=== PATIENT | female | born 1965 | race Caucasian/White ===

== ENCOUNTER 2017-04-15 09:16 | Inpatient (IN) | payer MEDICAID, SELFPAY ==
[~2017-04-15] VITALS: Ht 175.3 cm; Wt 59.4 kg
[2017-04-15 09:57] VITALS: BP 128/97
[2017-04-15] MEDS ORDERED: ZOLPIDEM TARTRATE 10 MG TABLET PO PRN (11:30)
[2017-04-15 12:30] VITALS: BP 142/113
[2017-04-15] MEDS: LORazepam 2 MG TABLET PO PRN (12:53)
[2017-04-15] MEDS: HALOPERIDOL 5 MG TABLET PO PRN (12:54)
[2017-04-15] MEDS ORDERED: ACETAMINOPHEN 325 MG TABLET PO PRN (13:00)
[2017-04-15] MEDS: IBUPROFEN 600 MG TABLET PO PRN (13:34)
[2017-04-15] MEDS ORDERED: INFLUENZA VIRUS VACCINE QVS 2017-18 (3YR+)/PF 60 MCG/0.5 ML SYRINGE IM ONE (14:15)
[2017-04-15] MEDS: OLANZapine 5 MG TABLET PO SCH (21:00)
[2017-04-15 23:09] VITALS: BP 108/70
[2017-04-16 08:30] VITALS: BP 107/77
[2017-04-16 09:00] LABS: BASOPHILS # (AUTO) 0.03 K/uL (0.00-0.20); BASOPHILS % (AUTO) 0.5 % (0.0-2.0); EOSINOPHILS # (AUTO) 0.21 K/uL (0.00-0.70); EOSINOPHILS % (AUTO) 3.62 % (1.0-6.0); HEMATOCRIT 46.4 % (36-46); HEMOGLOBIN 15.4 g/dL (12.0-16.0); LYMPHOCYTES # (AUTO) 1.7 K/uL (1.0-4.8); LYMPHOCYTES % (AUTO) 28.8 % (22.0-44.0); MEAN CORPUSCULAR HEMOGLOBIN 32.9 pg (26.0-34.0); MEAN CORPUSCULAR HGB CONC 33.2 G/dL (31.0-37.0); MEAN CORPUSCULAR VOLUME 99 fL (80-100); MONOCYTES # (AUTO) 0.4 K/uL (0.1-1.0); MONOCYTES % (AUTO) 6.8 % (2.0-9.0); NEUTROPHILS # (AUTO) 3.6 K/uL (1.8-7.7); NEUTROPHILS % (AUTO) 60.3 % (40.0-70.0); PLATELET COUNT (AUTO) 258 K/uL (150-450); RED BLOOD CELL COUNT(AUTO) 4.68 MIL/uL (4.00-5.20); RED CELL DISTRIBUTION WIDTH 13.3 % (11.5-14.5); WHITE BLOOD COUNT (AUTO) 5.9 K/uL (4.5-11.0)
[2017-04-16] MEDS: PANTOPRAZOLE SODIUM 40 MG DR TABLET PO SCH (09:16)
[2017-04-16] MEDS: NICOTINE 7 MG/24 HOUR PATCH TD SCH (09:16)
[2017-04-16] MEDS: FLUoxetine HCL 20 MG CAPSULE PO SCH (09:16)
[2017-04-16 09:58] LABS: HEMOGLOBIN A1C 6.2 % (4.5-6.2)
[2017-04-16 10:11] LABS: ALANINE AMINOTRANSFERASE 27 U/L (12-78); ALBUMIN 3.6 g/dL (3.4-5.0); ANION GAP 7 mmol/L (8-16); ASPARTATE AMINOTRANSFERASE 17 U/L (15-37); BILIRUBIN,TOTAL 0.2 mg/dL (0.1-1.0); CALCIUM, TOTAL 8.8 mg/dL (8.8-10.5); CARBON DIOXIDE 30 mmol/L (22-29); CHLORIDE 103 mmol/L (98-107); CHOL/HDL RATIO 2.1 (3.9-5.7); CREATININE 0.89 mg/dL (0.60-1.30); GLOMERULAR FILTR. RATE CALC > 60 mL/min (>60); POTASSIUM 4.8 mmol/L (3.5-5.1); SODIUM SERUM 140 mmol/L (136-145); THYROID STIMULATING HORMONE 1.97 uIU/mL (0.36-3.74); TOTAL PROTEIN, SERUM 6.2 g/dL (6.4-8.2); UREA NITROGEN, BLOOD 18 mg/dL (7-18)
[2017-04-16] MEDS ORDERED: LORazepam 2 MG/ML VIAL IM ONE (11:45)
[2017-04-16] MEDS ORDERED: DiphenhydrAMINE HCL 50 MG/ML VIAL IM ONE (11:45)
[2017-04-16] MEDS ORDERED: HALOPERIDOL LACTATE 5 MG/ML VIAL IM ONE (11:45)
[2017-04-16 11:57] LABS: APPEARANCE,URINE CLEAR (CLEAR); GLUCOSE, URINE (UA) NEGATIVE (NEGATIVE); KETONES,URINE NEGATIVE (NEGATIVE); LEUKOCYTE ESTERASE ,URINE SMALL (NEGATIVE); OCCULT BLOOD,URINE TRACE (NEGATIVE); PROTEIN,URINE NEGATIVE (NEGATIVE)
[2017-04-16 12:39] LABS: ADD UA MICROSCOPIC YES
[2017-04-16 12:42] LABS: RBC,URINE 0-2 /HPF (0-2); SQUAMOUS EPITHELIAL CELL,UR Few /LPF (None Seen)
[2017-04-16] MEDS ORDERED: OLAN5TAB2 PO (13:39)
[2017-04-16] MEDS ORDERED: FLUO20CA30 PO (13:39)
[2017-04-16] MEDS ORDERED: PANT40TA25 PO (13:40)
[2017-04-16 16:45] VITALS: BP 105/64
[2017-04-16] MEDS: OLANZapine 5 MG TABLET PO SCH (20:23)
[2017-04-17 06:55] VITALS: BP 101/75
[2017-04-17] MEDS: NICOTINE 7 MG/24 HOUR PATCH TD SCH (09:11)
[2017-04-17] MEDS: FLUoxetine HCL 20 MG CAPSULE PO SCH (09:12)
[2017-04-17] MEDS: PANTOPRAZOLE SODIUM 40 MG DR TABLET PO SCH (09:12)
[2017-04-17] MEDS: LORazepam 2 MG TABLET PO PRN (16:41)
[2017-04-17 16:46] VITALS: BP 113/68
[2017-04-17] MEDS: OLANZapine 5 MG TABLET PO SCH (20:25)
[2017-04-18 06:30] VITALS: BP 115/81
[2017-04-18] MEDS: LORazepam 2 MG TABLET PO PRN ×2 (07:09→17:12)
[2017-04-18] MEDS: PANTOPRAZOLE SODIUM 40 MG DR TABLET PO SCH (08:12)
[2017-04-18] MEDS: FLUoxetine HCL 20 MG CAPSULE PO SCH (08:12)
[2017-04-18] MEDS: NICOTINE 7 MG/24 HOUR PATCH TD SCH (08:13)
[2017-04-18] MEDS: HALOPERIDOL 5 MG TABLET PO PRN (08:17)
[2017-04-18 08:36] VITALS: BP 115/81
[2017-04-18 17:12] VITALS: BP 110/68
[2017-04-18] MEDS: IBUPROFEN 600 MG TABLET PO PRN (17:12)
[2017-04-18] MEDS: OLANZapine 5 MG TABLET PO SCH (21:00)
[2017-04-19] MEDS: LORazepam 2 MG TABLET PO PRN ×2 (06:30→11:34)
[2017-04-19 06:34] VITALS: BP 130/77
[2017-04-19 08:24] VITALS: BP 133/94
[2017-04-19] MEDS: NICOTINE 7 MG/24 HOUR PATCH TD SCH (08:30)
[2017-04-19] MEDS: PANTOPRAZOLE SODIUM 40 MG DR TABLET PO SCH (08:30)
[2017-04-19] MEDS: FLUoxetine HCL 20 MG CAPSULE PO SCH (08:30)
== END 2017-04-19 13:30 | disposition home or self-care (01) | DRG 750 ==
LOC: B3A 12:31
PROVIDERS: ADMIT Psychiatry & Neurology Psychiatry; ATTEND Psychiatry & Neurology Psychiatry
DX: F25.1 Schizoaffective disorder, depressive type (principal); R45.851 Suicidal ideations; F29 Unspecified psychosis not due to a substance or known physiological condition; R73.03 Prediabetes; F41.9 Anxiety disorder, unspecified; F15.10 Other stimulant abuse, uncomplicated; F12.90 Cannabis use, unspecified, uncomplicated; K21.9 Gastro-esophageal reflux disease without esophagitis; Z28.21 Immunization not carried out because of patient refusal; Z91.5 Personal history of self-harm; Z59.0 Homelessness
CPT/HCPCS: 80307; 83036; 84439; 84443; 90471; J1200; J1630; J2060

== ENCOUNTER 2017-04-15 15:35 | Emergency (ER) | payer MEDICAID, SELFPAY ==
[~2017-04-15] VITALS: Ht 160 cm; Wt 63.6 kg
[2017-04-15 18:34] LABS: BASOPHILS # (AUTO) 0.07 K/uL (0.00-0.20); BASOPHILS % (AUTO) 0.8 % (0.0-2.0); EOSINOPHILS # (AUTO) 0.29 K/uL (0.00-0.70); EOSINOPHILS % (AUTO) 3.45 % (1.0-6.0); HEMATOCRIT 43.4 % (36-46); HEMOGLOBIN 14.6 g/dL (12.0-16.0); LYMPHOCYTES # (AUTO) 2.8 K/uL (1.0-4.8); LYMPHOCYTES % (AUTO) 33.1 % (22.0-44.0); MEAN CORPUSCULAR HEMOGLOBIN 33.1 pg (26.0-34.0); MEAN CORPUSCULAR HGB CONC 33.7 G/dL (31.0-37.0); MEAN CORPUSCULAR VOLUME 98 fL (80-100); MONOCYTES # (AUTO) 0.5 K/uL (0.1-1.0); NEUTROPHILS # (AUTO) 4.8 K/uL (1.8-7.7); NEUTROPHILS % (AUTO) 56.6 % (40.0-70.0); PLATELET COUNT (AUTO) 251 K/uL (150-450); RED BLOOD CELL COUNT(AUTO) 4.41 MIL/uL (4.00-5.20); RED CELL DISTRIBUTION WIDTH 13.1 % (11.5-14.5)
[2017-04-15 18:58] LABS: ANION GAP 6 mmol/L (8-16); CARBON DIOXIDE 28 mmol/L (22-29); CHLORIDE 106 mmol/L (98-107); CREATININE 0.79 mg/dL (0.60-1.30); GLOMERULAR FILTR. RATE CALC > 60 mL/min (>60); GLUCOSE,RANDOM 98 mg/dL (70-110); POTASSIUM 4.2 mmol/L (3.5-5.1); SODIUM SERUM 140 mmol/L (136-145); UREA NITROGEN, BLOOD 17 mg/dL (7-18)
[2017-04-15 19:04] LABS: ALANINE AMINOTRANSFERASE 20 U/L (12-78); ALBUMIN 3.4 g/dL (3.4-5.0); ALKALINE PHOSPHATASE 75 U/L (46-116); ASPARTATE AMINOTRANSFERASE 17 U/L (15-37); BILIRUBIN,TOTAL 0.1 mg/dL (0.1-1.0); LIPASE 291 U/L (73-393); TOTAL PROTEIN, SERUM 6.8 g/dL (6.4-8.2)
[2017-04-15 20:03] LABS: ACETAMINOPHEN < 2 mcg/mL (10-30)
[2017-04-15] MEDS ORDERED: IBUPROFEN 600 MG TABLET PO ONE (20:45)
[2017-04-15 20:56] LABS: APPEARANCE,URINE CLOUDY (CLEAR); BILIRUBIN,URINE NEGATIVE (NEGATIVE); GLUCOSE, URINE (UA) NEGATIVE (NEGATIVE); KETONES,URINE NEGATIVE (NEGATIVE); LEUKOCYTE ESTERASE ,URINE LARGE (NEGATIVE); NITRATE,URINE NEGATIVE (NEGATIVE); OCCULT BLOOD,URINE MODERATE (NEGATIVE); PROTEIN,URINE NEGATIVE (NEGATIVE); UROBILINOGEN,URINE 0.2 mg/dL (<=1.0)
[2017-04-15 21:00] LABS: AMPHET/METH SCREEN,URINE POSITIVE (NEGATIVE); BARBITURATE SCREEN, URINE NEGATIVE (NEGATIVE); BENZODIAZEPINES SCREEN,URINE NEGATIVE (NEGATIVE); CANNABINOID SCREEN,URINE POSITIVE (NEGATIVE); COCAINE SCREEN,URINE NEGATIVE (NEGATIVE); METHADONE SCREEN, URINE NEGATIVE (NEGATIVE); OPIATE SCREEN,URINE NEGATIVE (NEGATIVE)
[2017-04-15 21:01] LABS: PHENCYCLIDINE SCREEN,URINE NEGATIVE (NEGATIVE)
[2017-04-15 21:42] LABS: SQUAMOUS EPITHELIAL CELL,UR Moderate /LPF (None Seen)
[2017-04-15 21:43] LABS: BACTERIA,URINE Moderate /HPF (None Seen); WBC,URINE 51-100 /HPF (0-5)
[2017-04-15 21:57] VITALS: BP 119/71
[2017-04-16] MEDS ORDERED: FLUO20CA30 PO (13:39)
[2017-04-16] MEDS ORDERED: OLAN5TAB2 PO (13:39)
[2017-04-16] MEDS ORDERED: PANT40TA25 PO (13:40)
== END 2017-04-15 22:36 | disposition home or self-care (01) ==
LOC: EMS 15:36
DX: R10.9 Unspecified abdominal pain (principal); R45.851 Suicidal ideations; K59.00 Constipation, unspecified; F31.9 Bipolar disorder, unspecified; F22 Delusional disorders
CPT/HCPCS: 36415; 76705; 80053; 80307; 81001; 83690; 85025; 87086; 99285; G0480; G0481

== ENCOUNTER 2017-05-08 13:02 | Inpatient (IN) | payer MEDICAID, SELFPAY ==
[~2017-05-08] VITALS: Ht 172.7 cm; Wt 61.0 kg
[~2017-05-08 13:02] MED LIST: FLUO20CA30 PO; OLAN5TAB2 PO; PANT40TA25 PO
[2017-05-08] MEDS ORDERED: ZOLPIDEM TARTRATE 10 MG TABLET PO PRN (20:30)
[2017-05-08 20:53] VITALS: BP 117/76
[2017-05-09] MEDS ORDERED: ACETAMINOPHEN 325 MG TABLET PO PRN (00:15)
[2017-05-09] MEDS ORDERED: IBUPROFEN 600 MG TABLET PO PRN (00:15)
[2017-05-09 04:25] VITALS: BP 115/62
[2017-05-09] MEDS: LORazepam 2 MG TABLET PO PRN ×2 (06:19→15:10)
[2017-05-09] MEDS ORDERED: PNEUMOCOCCAL VACCINE POLYVALENT 0.5 ML VIAL [PPSV23] IM ONE (06:45)
[2017-05-09] MEDS ORDERED: INFLUENZA VIRUS VACCINE QVS 2017-18 (3YR+)/PF 60 MCG/0.5 ML SYRINGE IM ONE (06:45)
[2017-05-09 07:31] LABS: BASOPHILS % (AUTO) 0.5 % (0.0-2.0); EOSINOPHILS % (AUTO) 4.4 % (1.0-6.0); HEMATOCRIT 45.9 % (36-46); HEMOGLOBIN 15.6 g/dL (12.0-16.0); LYMPHOCYTES % (AUTO) 30.8 % (22.0-44.0); MEAN CORPUSCULAR HEMOGLOBIN 33.2 pg (26.0-34.0); MEAN CORPUSCULAR HGB CONC 33.9 G/dL (31.0-37.0); MEAN CORPUSCULAR VOLUME 98 fL (80-100); MONOCYTES # (AUTO) 0.6 K/uL (0.1-1.0); MONOCYTES % (AUTO) 9.1 % (2.0-9.0); NEUTROPHILS # (AUTO) 3.6 K/uL (1.8-7.7); NEUTROPHILS % (AUTO) 55.2 % (40.0-70.0); PLATELET COUNT (AUTO) 318 K/uL (150-450); RED BLOOD CELL COUNT(AUTO) 4.69 MIL/uL (4.00-5.20); RED CELL DISTRIBUTION WIDTH 13.3 % (11.5-14.5); WHITE BLOOD COUNT (AUTO) 6.5 K/uL (4.5-11.0)
[2017-05-09 07:51] LABS: HEMOGLOBIN A1C 6.3 % (4.5-6.2)
[2017-05-09 08:02] LABS: ALANINE AMINOTRANSFERASE 28 U/L (12-78); ALBUMIN 3.8 g/dL (3.4-5.0); ANION GAP 5 mmol/L (8-16); ASPARTATE AMINOTRANSFERASE 16 U/L (15-37); BILIRUBIN,TOTAL 0.3 mg/dL (0.1-1.0); CALCIUM, TOTAL 8.9 mg/dL (8.8-10.5); CARBON DIOXIDE 31 mmol/L (22-29); CHLORIDE 104 mmol/L (98-107); CHOL/HDL RATIO 2.1 (3.9-5.7); CREATININE 0.86 mg/dL (0.60-1.30); GLOMERULAR FILTR. RATE CALC > 60 mL/min (>60); POTASSIUM 5.1 mmol/L (3.5-5.1); SODIUM SERUM 140 mmol/L (136-145); THYROID STIMULATING HORMONE 1.49 uIU/mL (0.36-3.74); TOTAL PROTEIN, SERUM 6.6 g/dL (6.4-8.2); UREA NITROGEN, BLOOD 16 mg/dL (7-18)
[2017-05-09 08:40] VITALS: BP 106/60
[2017-05-09 09:28] LABS: APPEARANCE,URINE TURBID (CLEAR); GLUCOSE, URINE (UA) NEGATIVE (NEGATIVE); KETONES,URINE NEGATIVE (NEGATIVE); LEUKOCYTE ESTERASE ,URINE NEGATIVE (NEGATIVE); OCCULT BLOOD,URINE NEGATIVE (NEGATIVE); PH,URINE 5.5 (5.0-8.0); PROTEIN,URINE POS 1+ (NEGATIVE)
[2017-05-09 09:30] LABS: ADD UA MICROSCOPIC YES
[2017-05-09 09:46] LABS: CALCIUM OXALATE CRYSTALS,UR Few /LPF (None Seen); RBC,URINE None Seen /HPF (0-2); SQUAMOUS EPITHELIAL CELL,UR Rare /LPF (None Seen); WBC,URINE None Seen /HPF (0-5)
[2017-05-09] MEDS: FLUoxetine HCL 20 MG CAPSULE PO SCH (12:48)
[2017-05-09] MEDS: HALOPERIDOL 5 MG TABLET PO PRN (16:21)
[2017-05-09] MEDS ORDERED: FLUCONAZOLE 150 MG TABLET PO ONE (16:30)
[2017-05-09 16:42] VITALS: BP 119/67
[2017-05-09] MEDS: NICOTINE 14 MG/24 HOUR PATCH TD SCH (17:13)
[2017-05-09] MEDS: OLANZapine 5 MG TABLET PO SCH (20:56)
[2017-05-10 05:40] VITALS: BP 116/72
[2017-05-10] MEDS: FLUoxetine HCL 20 MG CAPSULE PO SCH (08:18)
[2017-05-10] MEDS: NICOTINE 14 MG/24 HOUR PATCH TD SCH (08:18)
[2017-05-10 08:22] VITALS: BP 111/74
[2017-05-10] MEDS: ACETAMINOPHEN 325 MG TABLET PO PRN (08:22)
[2017-05-10] MEDS: HALOPERIDOL 5 MG TABLET PO PRN (15:38)
[2017-05-10] MEDS: LORazepam 2 MG TABLET PO PRN (15:38)
[2017-05-10] MEDS: IBUPROFEN 400 MG TABLET PO PRN (15:39)
[2017-05-10 16:09] VITALS: BP 115/65
[2017-05-10] MEDS: OLANZapine 5 MG TABLET PO SCH (21:11)
[2017-05-11 06:42] VITALS: BP 101/70
[2017-05-11] MEDS: NICOTINE 14 MG/24 HOUR PATCH TD SCH (08:26)
[2017-05-11] MEDS: FLUoxetine HCL 20 MG CAPSULE PO SCH (08:26)
[2017-05-11] MEDS: LORazepam 2 MG TABLET PO PRN ×2 (10:51→16:42)
[2017-05-11] MEDS: IBUPROFEN 400 MG TABLET PO PRN (10:51)
[2017-05-11 10:52] VITALS: BP 113/60
[2017-05-11 16:19] VITALS: BP 117/79
[2017-05-11] MEDS: HALOPERIDOL 5 MG TABLET PO PRN (16:42)
[2017-05-11] MEDS: ACETAMINOPHEN 325 MG TABLET PO PRN (16:42)
[2017-05-11] MEDS: OLANZapine 5 MG TABLET PO SCH (20:28)
[2017-05-12 00:09] VITALS: BP 100/62
[2017-05-12 06:48] VITALS: BP 110/62
[2017-05-12] MEDS: IBUPROFEN 400 MG TABLET PO PRN ×2 (07:07→16:03)
[2017-05-12 08:45] VITALS: BP 123/79
[2017-05-12] MEDS: NICOTINE 14 MG/24 HOUR PATCH TD SCH (08:50)
[2017-05-12] MEDS: FLUoxetine HCL 20 MG CAPSULE PO SCH (08:50)
[2017-05-12 16:03] VITALS: BP 112/68
[2017-05-12] MEDS: HALOPERIDOL 5 MG TABLET PO PRN (16:08)
[2017-05-12] MEDS: OLANZapine 10 MG TABLET PO SCH (20:17)
[2017-05-13 06:31] VITALS: BP 117/70
[2017-05-13] MEDS: LORazepam 2 MG TABLET PO PRN ×2 (06:56→15:18)
[2017-05-13] MEDS: NICOTINE 14 MG/24 HOUR PATCH TD SCH (08:21)
[2017-05-13] MEDS: FLUoxetine HCL 20 MG CAPSULE PO SCH (08:21)
[2017-05-13 08:48] VITALS: BP 118/70
[2017-05-13 16:33] VITALS: BP 129/72
[2017-05-13] MEDS: IBUPROFEN 400 MG TABLET PO PRN (16:33)
[2017-05-13 17:28] VITALS: BP 129/72
[2017-05-13] MEDS: OLANZapine 10 MG TABLET PO SCH (21:11)
[2017-05-14 04:36] VITALS: BP 115/81
[2017-05-14] MEDS: NICOTINE 14 MG/24 HOUR PATCH TD SCH (08:13)
[2017-05-14] MEDS: HALOPERIDOL 5 MG TABLET PO PRN ×2 (08:13→16:24)
[2017-05-14] MEDS: FLUoxetine HCL 20 MG CAPSULE PO SCH (08:13)
[2017-05-14 08:43] VITALS: BP 128/85
[2017-05-14] MEDS: LORazepam 2 MG TABLET PO PRN ×2 (09:59→16:24)
[2017-05-14 16:18] VITALS: BP 108/69
[2017-05-14] MEDS: IBUPROFEN 400 MG TABLET PO PRN (16:24)
[2017-05-14] MEDS: OLANZapine 5 MG TABLET PO SCH (20:20)
[2017-05-15] MEDS: IBUPROFEN 400 MG TABLET PO PRN ×2 (00:36→22:18)
[2017-05-15 00:42] VITALS: BP 107/73
[2017-05-15] MEDS: HALOPERIDOL 5 MG TABLET PO PRN ×2 (04:14→16:49)
[2017-05-15 08:30] VITALS: BP 114/68
[2017-05-15] MEDS: FLUoxetine HCL 20 MG CAPSULE PO SCH (09:52)
[2017-05-15] MEDS: NICOTINE 14 MG/24 HOUR PATCH TD SCH (09:53)
[2017-05-15] MEDS: LORazepam 2 MG TABLET PO PRN ×2 (13:09→16:49)
[2017-05-15 16:10] VITALS: BP 121/88
[2017-05-15] MEDS: OLANZapine 5 MG TABLET PO SCH (21:22)
[2017-05-16 00:10] VITALS: BP 109/68
[2017-05-16] MEDS: LORazepam 2 MG TABLET PO PRN ×3 (06:58→20:22)
[2017-05-16] MEDS: IBUPROFEN 400 MG TABLET PO PRN (07:01)
[2017-05-16 07:02] VITALS: BP 125/78
[2017-05-16] MEDS: BENZOCAINE 20% 11.9 GM GEL TP PRN ×2 (07:02→21:06)
[2017-05-16 09:00] VITALS: BP 122/72
[2017-05-16] MEDS: NICOTINE 14 MG/24 HOUR PATCH TD SCH (09:29)
[2017-05-16] MEDS: FLUoxetine HCL 20 MG CAPSULE PO SCH (09:29)
[2017-05-16] MEDS: HALOPERIDOL 5 MG TABLET PO PRN (11:35)
[2017-05-16] MEDS: ACETAMINOPHEN 325 MG TABLET PO PRN (12:36)
[2017-05-16 16:13] VITALS: BP 122/67
[2017-05-16] MEDS: OLANZapine 5 MG TABLET PO SCH (20:22)
[2017-05-17 00:01] VITALS: BP 123/70
[2017-05-17] MEDS: LORazepam 2 MG TABLET PO PRN ×2 (04:46→12:21)
[2017-05-17 08:08] VITALS: BP 126/77
[2017-05-17] MEDS: NICOTINE 14 MG/24 HOUR PATCH TD SCH (08:11)
[2017-05-17] MEDS: FLUoxetine HCL 20 MG CAPSULE PO SCH ×2 (08:11→16:37)
[2017-05-17] MEDS: HALOPERIDOL 5 MG TABLET PO PRN ×2 (08:16→18:08)
[2017-05-17] MEDS: IBUPROFEN 400 MG TABLET PO PRN (10:33)
[2017-05-17] MEDS: ACETAMINOPHEN 325 MG TABLET PO PRN (12:20)
[2017-05-17] MEDS: BENZOCAINE 20% 11.9 GM GEL TP PRN ×2 (13:22→20:38)
[2017-05-17 16:10] VITALS: BP 119/74
[2017-05-17] MEDS: OLANZapine 5 MG TABLET PO SCH (20:17)
[2017-05-18 06:39] VITALS: BP 118/72
[2017-05-18] MEDS: FLUoxetine HCL 20 MG CAPSULE PO SCH ×2 (08:24→16:09)
[2017-05-18] MEDS: NICOTINE 14 MG/24 HOUR PATCH TD SCH (08:24)
[2017-05-18 08:31] VITALS: BP 120/76
[2017-05-18] MEDS: LORazepam 2 MG TABLET PO PRN ×3 (08:45→20:33)
[2017-05-18] MEDS: HALOPERIDOL 5 MG TABLET PO PRN ×2 (08:46→16:09)
[2017-05-18] MEDS: IBUPROFEN 400 MG TABLET PO PRN (08:46)
[2017-05-18 16:27] VITALS: BP 108/76
[2017-05-18] MEDS: BENZOCAINE 20% 11.9 GM GEL TP PRN (20:33)
[2017-05-18] MEDS: OLANZapine 5 MG TABLET PO SCH (20:33)
[2017-05-19 08:24] VITALS: BP 116/72
[2017-05-19] MEDS: FLUoxetine HCL 20 MG CAPSULE PO SCH (08:42)
[2017-05-19] MEDS: NICOTINE 14 MG/24 HOUR PATCH TD SCH (08:42)
[2017-05-19] MEDS: LORazepam 2 MG TABLET PO PRN (10:30)
[2017-05-19] MEDS: ACETAMINOPHEN 325 MG TABLET PO PRN (12:57)
[2017-05-19] MEDS: BENZOCAINE 20% 11.9 GM GEL TP PRN (15:17)
[2017-05-19] MEDS ORDERED: OLAN15TA2 PO (15:20)
[2017-05-19] MEDS ORDERED: FLUO40CA7 PO (15:20)
== END 2017-05-19 16:05 | disposition home or self-care (01) | DRG 750 ==
LOC: B2S 20:00 → EDSTATUS 20:37
PROVIDERS: ADMIT Psychiatry & Neurology Psychiatry; ATTEND Psychiatry & Neurology Psychiatry
DX: F25.1 Schizoaffective disorder, depressive type (principal); Z59.0 Homelessness; R45.851 Suicidal ideations; I10 Essential (primary) hypertension; F15.10 Other stimulant abuse, uncomplicated; Z91.5 Personal history of self-harm; E78.5 Hyperlipidemia, unspecified; F41.9 Anxiety disorder, unspecified; K21.9 Gastro-esophageal reflux disease without esophagitis; Z28.21 Immunization not carried out because of patient refusal
CPT/HCPCS: 83036; 84439; 84443; 87081; 99285

== ENCOUNTER 2017-05-23 20:19 | Inpatient (IN) | payer MEDICAID, SELFPAY ==
[~2017-05-23] VITALS: Ht 175.3 cm; Wt 62.7 kg
[~2017-05-23 20:19] MED LIST changes: -FLUO20CA30 PO; +FLUO40CA7 PO; +OLAN15TA2 PO; -OLAN5TAB2 PO; -PANT40TA25 PO
[2017-05-23 21:16] LABS: BASOPHILS # (AUTO) 0.03 K/uL (0.00-0.20); BASOPHILS % (AUTO) 0.3 % (0.0-2.0); EOSINOPHILS # (AUTO) 0.06 K/uL (0.00-0.70); EOSINOPHILS % (AUTO) 0.62 % (1.0-6.0); HEMATOCRIT 35.9 % (36-46); HEMOGLOBIN 12.2 g/dL (12.0-16.0); LYMPHOCYTES # (AUTO) 2.3 K/uL (1.0-4.8); MEAN CORPUSCULAR HEMOGLOBIN 32.7 pg (26.0-34.0); MEAN CORPUSCULAR VOLUME 96 fL (80-100); MONOCYTES % (AUTO) 9.6 % (2.0-9.0); NEUTROPHILS % (AUTO) 67.6 % (40.0-70.0); PLATELET COUNT (AUTO) 305 K/uL (150-450); RED BLOOD CELL COUNT(AUTO) 3.74 MIL/uL (4.00-5.20); RED CELL DISTRIBUTION WIDTH 13.3 % (11.5-14.5); WHITE BLOOD COUNT (AUTO) 10.3 K/uL (4.5-11.0)
[2017-05-23 21:21] LABS: ANION GAP 11 mmol/L (8-16); CALCIUM, TOTAL 9.1 mg/dL (8.8-10.5); CARBON DIOXIDE 26 mmol/L (22-29); CHLORIDE 104 mmol/L (98-107); CREATININE 1.06 mg/dL (0.60-1.30); GLOMERULAR FILTR. RATE CALC 55 mL/min (>60); POTASSIUM 3.9 mmol/L (3.5-5.1); SODIUM SERUM 141 mmol/L (136-145); UREA NITROGEN, BLOOD 24 mg/dL (7-18)
[2017-05-23 21:27] LABS: ALANINE AMINOTRANSFERASE 51 U/L (12-78); ALBUMIN 4.1 g/dL (3.4-5.0); ASPARTATE AMINOTRANSFERASE 36 U/L (15-37); BILIRUBIN,TOTAL 0.3 mg/dL (0.1-1.0); TOTAL PROTEIN, SERUM 7.5 g/dL (6.4-8.2)
[2017-05-23] MEDS ORDERED: MAGNESIUM HYDROXIDE SUSPENSION 30 ML UDCUP PO PRN (21:30)
[2017-05-23] MEDS ORDERED: ZOLPIDEM TARTRATE 10 MG TABLET PO PRN (21:30)
[2017-05-23] MEDS ORDERED: MAG HYDROX/AL HYDROX/SIMETH ES 30 ML SUSPENSION UDCUP PO PRN (21:30)
[2017-05-23] MEDS ORDERED: DiphenhydrAMINE HCL 50 MG/ML VIAL IM ONE (22:30)
[2017-05-23] MEDS ORDERED: LORazepam 2 MG/ML VIAL IM ONE (22:30)
[2017-05-23] MEDS ORDERED: HALOPERIDOL LACTATE 5 MG/ML VIAL IM ONE (22:30)
[2017-05-24] VITALS (7 sets, daily range): BP systolic 104–131; BP diastolic 61–82
[2017-05-24 04:37] LABS: CHOL/HDL RATIO 1.9 (3.9-5.7)
[2017-05-24 04:38] LABS: ACETAMINOPHEN < 10 mcg/mL (10-30)
[2017-05-24 04:53] LABS: SALICYLATE 2.6 mg/dL (2.8-20.0)
[2017-05-24] MEDS: HALOPERIDOL 5 MG TABLET PO PRN (09:56)
[2017-05-24] MEDS: LORazepam 2 MG TABLET PO PRN ×2 (09:56→17:16)
[2017-05-24] MEDS: ACETAMINOPHEN 325 MG TABLET PO PRN (16:16)
[2017-05-24] MEDS: OLANZapine 7.5 MG TABLET PO SCH (21:00)
[2017-05-25 03:43] VITALS: BP 124/76
[2017-05-25] MEDS: ACETAMINOPHEN 325 MG TABLET PO PRN ×2 (05:06→17:17)
[2017-05-25 05:07] VITALS: BP 142/98
[2017-05-25] MEDS: LORazepam 2 MG TABLET PO PRN ×2 (05:07→17:17)
[2017-05-25 07:55] LABS: BASOPHILS % (AUTO) 0.7 % (0.0-2.0); EOSINOPHILS % (AUTO) 4.1 % (1.0-6.0); HEMATOCRIT 38.4 % (36-46); HEMOGLOBIN 13.3 g/dL (12.0-16.0); LYMPHOCYTES # (AUTO) 1.7 K/uL (1.0-4.8); LYMPHOCYTES % (AUTO) 31.6 % (22.0-44.0); MEAN CORPUSCULAR HEMOGLOBIN 33.2 pg (26.0-34.0); MEAN CORPUSCULAR HGB CONC 34.7 G/dL (31.0-37.0); MEAN CORPUSCULAR VOLUME 96 fL (80-100); MONOCYTES # (AUTO) 0.5 K/uL (0.1-1.0); MONOCYTES % (AUTO) 9.7 % (2.0-9.0); NEUTROPHILS # (AUTO) 2.8 K/uL (1.8-7.7); NEUTROPHILS % (AUTO) 53.9 % (40.0-70.0); PLATELET COUNT (AUTO) 304 K/uL (150-450); RED BLOOD CELL COUNT(AUTO) 4.01 MIL/uL (4.00-5.20); RED CELL DISTRIBUTION WIDTH 13.5 % (11.5-14.5); WHITE BLOOD COUNT (AUTO) 5.3 K/uL (4.5-11.0)
[2017-05-25] MEDS: HALOPERIDOL 5 MG TABLET PO PRN ×2 (08:25→17:17)
[2017-05-25] MEDS: NICOTINE 21 MG/24 HOUR PATCH TD SCH (08:25)
[2017-05-25] MEDS: FLUoxetine HCL 20 MG CAPSULE PO SCH (08:25)
[2017-05-25 08:32] LABS: ALBUMIN 3.5 g/dL (3.4-5.0); BILIRUBIN,TOTAL 0.4 mg/dL (0.1-1.0); CALCIUM, TOTAL 8.8 mg/dL (8.8-10.5); CREATININE 1.01 mg/dL (0.60-1.30); POTASSIUM 4.6 mmol/L (3.5-5.1); TOTAL PROTEIN, SERUM 6.7 g/dL (6.4-8.2)
[2017-05-25 08:40] VITALS: BP 119/88
[2017-05-25] MEDS ORDERED: FLUoxetine HCL 20 MG CAPSULE PO SCH (09:00)
[2017-05-25 13:37] VITALS: BP 121/74
[2017-05-25 16:24] VITALS: BP 134/86
[2017-05-25 20:05] VITALS: BP 113/74
[2017-05-25] MEDS: OLANZapine 7.5 MG TABLET PO SCH (20:36)
[2017-05-26] MEDS: LORazepam 2 MG TABLET PO PRN ×2 (06:48→14:52)
[2017-05-26] MEDS: ACETAMINOPHEN 325 MG TABLET PO PRN ×2 (06:49→15:01)
[2017-05-26 06:50] VITALS: BP 112/98
[2017-05-26] MEDS: BENZOCAINE 20% 11.9 GM GEL TP PRN ×2 (07:05→15:01)
[2017-05-26 08:10] VITALS: BP 110/60
[2017-05-26] MEDS: NICOTINE 21 MG/24 HOUR PATCH TD SCH (08:40)
[2017-05-26] MEDS: FLUoxetine HCL 20 MG CAPSULE PO SCH (08:40)
[2017-05-26] MEDS: HALOPERIDOL 5 MG TABLET PO PRN (14:52)
[2017-05-26 16:02] VITALS: BP 115/89
[2017-05-26] MEDS: OLANZapine 7.5 MG TABLET PO SCH (20:11)
[2017-05-27 04:35] VITALS: BP 118/88
[2017-05-27] MEDS: ACETAMINOPHEN 325 MG TABLET PO PRN ×3 (06:05→18:56)
[2017-05-27] MEDS: LORazepam 2 MG TABLET PO PRN ×3 (06:36→18:56)
[2017-05-27 08:00] VITALS: BP 109/70
[2017-05-27] MEDS: NICOTINE 21 MG/24 HOUR PATCH TD SCH (09:00)
[2017-05-27] MEDS: FLUoxetine HCL 20 MG CAPSULE PO SCH (09:00)
[2017-05-27 16:16] VITALS: BP 118/66
[2017-05-27] MEDS: HALOPERIDOL 5 MG TABLET PO PRN (18:56)
[2017-05-27] MEDS: OLANZapine 7.5 MG TABLET PO SCH (20:09)
[2017-05-28 02:39] VITALS: BP 110/76
[2017-05-28] MEDS: ACETAMINOPHEN 325 MG TABLET PO PRN ×2 (02:42→15:35)
[2017-05-28 08:50] VITALS: BP 133/89
[2017-05-28] MEDS: HALOPERIDOL 5 MG TABLET PO PRN ×3 (08:57→19:46)
[2017-05-28] MEDS: FLUoxetine HCL 20 MG CAPSULE PO SCH (08:57)
[2017-05-28] MEDS: LORazepam 2 MG TABLET PO PRN ×3 (08:57→19:46)
[2017-05-28] MEDS: NICOTINE 21 MG/24 HOUR PATCH TD SCH (08:57)
[2017-05-28 16:08] VITALS: BP 115/84
[2017-05-28] MEDS: OLANZapine 7.5 MG TABLET PO SCH (20:15)
[2017-05-29] MEDS: NICOTINE 21 MG/24 HOUR PATCH TD SCH (08:58)
[2017-05-29] MEDS: FLUoxetine HCL 20 MG CAPSULE PO SCH (08:58)
[2017-05-29 09:00] VITALS: BP 119/86
[2017-05-29] MEDS: LORazepam 2 MG TABLET PO PRN (10:38)
[2017-05-29] MEDS: HALOPERIDOL 5 MG TABLET PO PRN (10:38)
== END 2017-05-29 14:25 | disposition home or self-care (01) | DRG 750 ==
LOC: EMS 20:21 → B3A 05-24 11:39
PROVIDERS: ADMIT Psychiatry & Neurology Psychiatry; ATTEND Psychiatry & Neurology Psychiatry
DX: F25.1 Schizoaffective disorder, depressive type (principal); R45.851 Suicidal ideations; Z59.0 Homelessness; I10 Essential (primary) hypertension; E78.5 Hyperlipidemia, unspecified; K80.20 Calculus of gallbladder without cholecystitis without obstruction; F41.9 Anxiety disorder, unspecified; K21.9 Gastro-esophageal reflux disease without esophagitis; F17.210 Nicotine dependence, cigarettes, uncomplicated; F15.10 Other stimulant abuse, uncomplicated; Z63.9 Problem related to primary support group, unspecified; Z71.51 Drug abuse counseling and surveillance of drug abuser; Z91.5 Personal history of self-harm
CPT/HCPCS: 87081; 96372; 99285; G0480; G0481; J1200; J1630; J2060

== ENCOUNTER 2017-05-31 19:56 | Emergency (ER) | payer MEDICAID, SELFPAY ==
[~2017-05-31] VITALS: Ht 172.7 cm; Wt 67.3 kg
[2017-05-31 20:01] VITALS: BP 170/84
[2017-05-31 22:11] LABS: BASOPHILS % (AUTO) 0.5 % (0.0-2.0); EOSINOPHILS % (AUTO) 4.7 % (1.0-6.0); HEMATOCRIT 38.7 % (36-46); HEMOGLOBIN 13.2 g/dL (12.0-16.0); LYMPHOCYTES # (AUTO) 2.7 K/uL (1.0-4.8); LYMPHOCYTES % (AUTO) 28.6 % (22.0-44.0); MEAN CORPUSCULAR HEMOGLOBIN 32.9 pg (26.0-34.0); MEAN CORPUSCULAR HGB CONC 34.3 G/dL (31.0-37.0); MEAN CORPUSCULAR VOLUME 96 fL (80-100); MONOCYTES # (AUTO) 0.9 K/uL (0.1-1.0); MONOCYTES % (AUTO) 9.7 % (2.0-9.0); NEUTROPHILS # (AUTO) 5.3 K/uL (1.8-7.7); NEUTROPHILS % (AUTO) 56.5 % (40.0-70.0); PLATELET COUNT (AUTO) 340 K/uL (150-450); RED BLOOD CELL COUNT(AUTO) 4.03 MIL/uL (4.00-5.20); RED CELL DISTRIBUTION WIDTH 13.2 % (11.5-14.5); WHITE BLOOD COUNT (AUTO) 9.4 K/uL (4.5-11.0)
[2017-05-31 22:20] LABS: ANION GAP 7 mmol/L (8-16); CALCIUM, TOTAL 9.4 mg/dL (8.8-10.5); CARBON DIOXIDE 31 mmol/L (22-29); CHLORIDE 99 mmol/L (98-107); CREATININE 0.93 mg/dL (0.60-1.30); GLOMERULAR FILTR. RATE CALC > 60 mL/min (>60); POTASSIUM 3.8 mmol/L (3.5-5.1); SODIUM SERUM 137 mmol/L (136-145); UREA NITROGEN, BLOOD 17 mg/dL (7-18)
[2017-05-31 22:34] LABS: ALANINE AMINOTRANSFERASE 41 U/L (12-78); ALBUMIN 4.3 g/dL (3.4-5.0); ASPARTATE AMINOTRANSFERASE 28 U/L (15-37); BILIRUBIN,TOTAL 0.3 mg/dL (0.1-1.0); THYROID STIMULATING HORMONE 2.63 uIU/mL (0.36-3.74)
== END 2017-05-31 22:20 | disposition left against medical advice (07) ==
LOC: EMS 19:58
DX: G40.409 Other generalized epilepsy and epileptic syndromes, not intractable, without status epilepticus (principal); F15.90 Other stimulant use, unspecified, uncomplicated; F17.210 Nicotine dependence, cigarettes, uncomplicated; Z53.21 Procedure and treatment not carried out due to patient leaving prior to being seen by health care provider
CPT/HCPCS: 36415; 80053; 84443; 84703; 85025; G0480

== ENCOUNTER 2017-08-20 09:49 | Inpatient (IN) | payer MEDICAID ==
[~2017-08-20] VITALS: Ht 185.4 cm; Wt 59.3 kg
[2017-08-20 09:55] VITALS: BP 128/74
[2017-08-20] MEDS ORDERED: LORazepam 2 MG/ML VIAL IM ONE (10:15)
[2017-08-20] MEDS ORDERED: DiphenhydrAMINE HCL 50 MG/ML VIAL IM ONE (10:15)
[2017-08-20] MEDS ORDERED: HALOPERIDOL LACTATE 5 MG/ML VIAL IM ONE (10:15)
[2017-08-20 11:30] VITALS: BP 106/69
[2017-08-20] MEDS ORDERED: INFLUENZA VIRUS VACCINE QVS 2017-18 (3YR+)/PF 60 MCG/0.5 ML SYRINGE IM ONE (11:45)
[2017-08-20] MEDS: HALOPERIDOL 5 MG TABLET PO PRN (16:53)
[2017-08-20] MEDS: LORazepam 2 MG TABLET PO PRN (16:53)
[2017-08-21 08:36] VITALS: BP 119/81
[2017-08-21] MEDS ORDERED: ACETAMINOPHEN 325 MG TABLET PO PRN (09:00)
[2017-08-21] MEDS: LORazepam 2 MG TABLET PO PRN (09:24)
[2017-08-21] MEDS: FLUoxetine HCL 20 MG CAPSULE PO SCH (09:24)
[2017-08-21 16:02] VITALS: BP 106/69
[2017-08-21] MEDS: OLANZapine 10 MG TABLET PO SCH (20:15)
[2017-08-22 06:00] VITALS: BP 103/61
[2017-08-22] MEDS: FLUoxetine HCL 20 MG CAPSULE PO SCH (09:06)
[2017-08-22] MEDS: IBUPROFEN 400 MG TABLET PO PRN (09:06)
[2017-08-22 09:07] VITALS: BP 132/81
[2017-08-22 16:14] VITALS: BP 108/73
[2017-08-22] MEDS: HALOPERIDOL 5 MG TABLET PO PRN (16:46)
[2017-08-22] MEDS: LORazepam 2 MG TABLET PO PRN (16:46)
[2017-08-22] MEDS: OLANZapine 10 MG TABLET PO SCH (20:17)
[2017-08-23 07:08] VITALS: BP 141/82
[2017-08-23] MEDS: LORazepam 2 MG TABLET PO PRN ×2 (07:24→16:47)
[2017-08-23] MEDS: IBUPROFEN 400 MG TABLET PO PRN (07:24)
[2017-08-23] MEDS: FLUoxetine HCL 20 MG CAPSULE PO SCH (08:05)
[2017-08-23 08:36] LABS: BASOPHILS % (AUTO) 0.5 % (0.0-2.0); EOSINOPHILS % (AUTO) 2.4 % (1.0-6.0); HEMOGLOBIN 15.7 g/dL (12.0-16.0); LYMPHOCYTES # (AUTO) 2.1 K/uL (1.0-4.8); LYMPHOCYTES % (AUTO) 34.2 % (22.0-44.0); MEAN CORPUSCULAR HEMOGLOBIN 32.1 pg (26.0-34.0); MEAN CORPUSCULAR HGB CONC 34.1 G/dL (31.0-37.0); MEAN CORPUSCULAR VOLUME 94 fL (80-100); MONOCYTES # (AUTO) 0.3 K/uL (0.1-1.0); MONOCYTES % (AUTO) 5.5 % (2.0-9.0); NEUTROPHILS # (AUTO) 3.6 K/uL (1.8-7.7); NEUTROPHILS % (AUTO) 57.4 % (40.0-70.0); PLATELET COUNT (AUTO) 266 K/uL (150-450); RED BLOOD CELL COUNT(AUTO) 4.88 MIL/uL (4.00-5.20); RED CELL DISTRIBUTION WIDTH 13.2 % (11.5-14.5)
[2017-08-23 08:53] LABS: HEMOGLOBIN A1C 5.8 % (4.5-6.2)
[2017-08-23 09:25] LABS: ALANINE AMINOTRANSFERASE 32 U/L (12-78); ALBUMIN 3.8 g/dL (3.4-5.0); ALKALINE PHOSPHATASE 94 U/L (46-116); ANION GAP 4 mmol/L (8-16); ASPARTATE AMINOTRANSFERASE 24 U/L (15-37); BILIRUBIN,TOTAL 0.4 mg/dL (0.1-1.0); CALCIUM, TOTAL 9.2 mg/dL (8.8-10.5); CARBON DIOXIDE 32 mmol/L (22-29); CHLORIDE 104 mmol/L (98-107); CHOL/HDL RATIO 2.3 (3.9-5.7); CHOLESTEROL 234 mg/dL (131-200); CREATININE 0.89 mg/dL (0.60-1.30); FREE T4 (FREE THYROXINE) 0.77 ng/dL (0.76-1.46); GLOMERULAR FILTR. RATE CALC > 60 mL/min (>60); GLUCOSE,RANDOM 159 mg/dL (70-110); HCG,QUANTITATIVE < 1 mIU/mL (0-6); HDL CHOLESTEROL 102 mg/dL (40-60); LDL CHOL (CALC.) 111 mg/dL (0-130); POTASSIUM 4.4 mmol/L (3.5-5.1); SODIUM SERUM 140 mmol/L (136-145); THYROID STIMULATING HORMONE 2.18 uIU/mL (0.36-3.74); TOTAL PROTEIN, SERUM 7.2 g/dL (6.4-8.2); TRIGLYCERIDES 105 mg/dL (15-150); UREA NITROGEN, BLOOD 22 mg/dL (7-18)
[2017-08-23 16:18] VITALS: BP 109/69
[2017-08-23] MEDS: HALOPERIDOL 5 MG TABLET PO PRN (16:47)
[2017-08-23] MEDS: ZOLPIDEM TARTRATE 10 MG TABLET PO PRN (21:07)
[2017-08-23] MEDS: OLANZapine 10 MG TABLET PO SCH (21:07)
[2017-08-24 06:41] VITALS: BP 116/73
[2017-08-24] MEDS: FLUoxetine HCL 20 MG CAPSULE PO SCH (08:40)
[2017-08-24] MEDS: LORazepam 2 MG TABLET PO PRN ×2 (10:27→14:49)
[2017-08-24 14:48] VITALS: BP 122/70
[2017-08-24] MEDS: IBUPROFEN 400 MG TABLET PO PRN (14:49)
[2017-08-24 16:38] VITALS: BP 117/78
[2017-08-24] MEDS: OLANZapine 10 MG TABLET PO SCH (20:50)
[2017-08-24] MEDS: ZOLPIDEM TARTRATE 10 MG TABLET PO PRN (20:50)
[2017-08-25 06:20] VITALS: BP 121/66
[2017-08-25] MEDS: FLUoxetine HCL 20 MG CAPSULE PO SCH (08:13)
[2017-08-25] MEDS: LORazepam 2 MG TABLET PO PRN ×2 (08:13→16:38)
[2017-08-25 08:50] VITALS: BP 108/83
[2017-08-25] MEDS: IBUPROFEN 400 MG TABLET PO PRN (11:54)
[2017-08-25] MEDS: HALOPERIDOL 5 MG TABLET PO PRN ×2 (11:54→16:38)
[2017-08-25 16:23] VITALS: BP 125/61
[2017-08-25] MEDS: OLANZapine 10 MG TABLET PO SCH (20:23)
[2017-08-26 08:41] VITALS: BP 114/68
[2017-08-26] MEDS ORDERED: OLAN10TA3 PO (10:08)
[2017-08-26] MEDS ORDERED: FLUO-191 PO (10:08)
[2017-08-26] MEDS: FLUoxetine HCL 20 MG CAPSULE PO SCH (10:10)
== END 2017-08-26 11:56 | disposition home or self-care (01) | DRG 750 ==
LOC: B3A 10:12
DX: F25.1 Schizoaffective disorder, depressive type (principal); R45.851 Suicidal ideations; Z59.0 Homelessness; I10 Essential (primary) hypertension; E78.5 Hyperlipidemia, unspecified; F10.10 Alcohol abuse, uncomplicated; K21.9 Gastro-esophageal reflux disease without esophagitis; R73.03 Prediabetes; F19.10 Other psychoactive substance abuse, uncomplicated; Z71.41 Alcohol abuse counseling and surveillance of alcoholic; Z71.51 Drug abuse counseling and surveillance of drug abuser; Z79.899 Other long term (current) drug therapy
CPT/HCPCS: 83036; 84439; 84443; J1200; J1630; J2060

== ENCOUNTER 2017-08-20 11:44 | Emergency (ER) | payer MEDICAID ==
[~2017-08-20] VITALS: Ht 180.3 cm; Wt 60.0 kg
[2017-08-20 12:55] LABS: BASOPHILS % (AUTO) 0.6 % (0.0-2.0); EOSINOPHILS % (AUTO) 2.3 % (1.0-6.0); HEMATOCRIT 47.6 % (36-46); HEMOGLOBIN 16.2 g/dL (12.0-16.0); LYMPHOCYTES # (AUTO) 2.2 K/uL (1.0-4.8); MEAN CORPUSCULAR HEMOGLOBIN 32.2 pg (26.0-34.0); MEAN CORPUSCULAR VOLUME 95 fL (80-100); MONOCYTES # (AUTO) 0.5 K/uL (0.1-1.0); MONOCYTES % (AUTO) 7.2 % (2.0-9.0); NEUTROPHILS # (AUTO) 3.7 K/uL (1.8-7.7); NEUTROPHILS % (AUTO) 56.9 % (40.0-70.0); PLATELET COUNT (AUTO) 284 K/uL (150-450); RED BLOOD CELL COUNT(AUTO) 5.03 MIL/uL (4.00-5.20); RED CELL DISTRIBUTION WIDTH 13.6 % (11.5-14.5)
[2017-08-20 13:12] LABS: ANION GAP 8 mmol/L (8-16); CARBON DIOXIDE 28 mmol/L (22-29); CHLORIDE 103 mmol/L (98-107); GLOMERULAR FILTR. RATE CALC > 60 mL/min (>60); GLUCOSE,RANDOM 94 mg/dL (70-110); POTASSIUM 4.4 mmol/L (3.5-5.1); SODIUM SERUM 139 mmol/L (136-145); UREA NITROGEN, BLOOD 14 mg/dL (7-18)
[2017-08-20 13:27] LABS: ALANINE AMINOTRANSFERASE 27 U/L (12-78); ALBUMIN 3.8 g/dL (3.4-5.0); ALKALINE PHOSPHATASE 98 U/L (46-116); ASPARTATE AMINOTRANSFERASE 33 U/L (15-37); BILIRUBIN,TOTAL 0.3 mg/dL (0.1-1.0); TOTAL PROTEIN, SERUM 7.2 g/dL (6.4-8.2)
[2017-08-20 13:38] LABS: ACETAMINOPHEN < 2 mcg/mL (10-30)
[2017-08-20 13:42] LABS: SALICYLATE 4.3 mg/dL (2.8-20.0)
[2017-08-20 13:48] LABS: AMPHET/METH SCREEN,URINE POSITIVE (NEGATIVE); BARBITURATE SCREEN, URINE NEGATIVE (NEGATIVE); BENZODIAZEPINES SCREEN,URINE NEGATIVE (NEGATIVE); CANNABINOID SCREEN,URINE POSITIVE (NEGATIVE); COCAINE SCREEN,URINE NEGATIVE (NEGATIVE); METHADONE SCREEN, URINE NEGATIVE (NEGATIVE); OPIATE SCREEN,URINE NEGATIVE (NEGATIVE); PHENCYCLIDINE SCREEN,URINE NEGATIVE (NEGATIVE)
[2017-08-20 13:54] LABS: APPEARANCE,URINE CLEAR (CLEAR); BILIRUBIN,URINE NEGATIVE (NEGATIVE); GLUCOSE, URINE (UA) NEGATIVE (NEGATIVE); KETONES,URINE NEGATIVE (NEGATIVE); LEUKOCYTE ESTERASE ,URINE NEGATIVE (NEGATIVE); NITRATE,URINE NEGATIVE (NEGATIVE); OCCULT BLOOD,URINE NEGATIVE (NEGATIVE); PROTEIN,URINE NEGATIVE (NEGATIVE); UROBILINOGEN,URINE 0.2 mg/dL (<=1.0)
[2017-08-20 14:02] LABS: BACTERIA,URINE Rare /HPF (None Seen); RBC,URINE None Seen /HPF (0-2); SQUAMOUS EPITHELIAL CELL,UR Rare /LPF (None Seen); WBC,URINE 0-2 /HPF (0-5)
[2017-08-20 14:19] VITALS: BP 111/84
== END 2017-08-20 14:24 | disposition other institution (70) ==
LOC: EMS 11:45
DX: T39.1X2A Poisoning by 4-Aminophenol derivatives, intentional self-harm, initial encounter (principal); F25.9 Schizoaffective disorder, unspecified; F17.210 Nicotine dependence, cigarettes, uncomplicated; F31.9 Bipolar disorder, unspecified; Y92.89 Other specified places as the place of occurrence of the external cause
CPT/HCPCS: 36415; 80053; 80307; 81001; 85025; 99285; G0480 ×2; G0481

== ENCOUNTER 2017-09-01 17:05 | Emergency (ER) | payer MEDICAID ==
[~2017-09-01] VITALS: Ht 165.1 cm; Wt 59.1 kg
[~2017-09-01 17:05] MED LIST changes: +FLUO-191 PO; -FLUO40CA7 PO; +OLAN10TA3 PO; -OLAN15TA2 PO
[2017-09-01 17:31] VITALS: BP 149/97
[2017-09-01] MEDS ORDERED: KETOROLAC TROMETHAMINE 60 MG/2 ML VIAL IM ONE (17:45)
== END 2017-09-01 18:13 | disposition home or self-care (01) ==
LOC: EMS 17:06
DX: S86.911A Strain of unspecified muscle(s) and tendon(s) at lower leg level, right leg, initial encounter (principal); I10 Essential (primary) hypertension; F31.9 Bipolar disorder, unspecified; F17.210 Nicotine dependence, cigarettes, uncomplicated; F15.10 Other stimulant abuse, uncomplicated; X58.XXXA Exposure to other specified factors, initial encounter; Y93.89 Activity, other specified; Y92.89 Other specified places as the place of occurrence of the external cause; Y99.8 Other external cause status
CPT/HCPCS: 96372; 99283; J1885

== ENCOUNTER 2017-09-01 18:49 | Emergency (ER) | payer MEDICAID | END 2017-09-01 19:32 | disposition left against medical advice (07) | LOC: EMS 18:50 | DX: Z00.00 Encounter for general adult medical examination without abnormal findings (principal); Z53.21 Procedure and treatment not carried out due to patient leaving prior to being seen by health care provider ==

== ENCOUNTER 2017-10-05 14:34 | Emergency (ER) | payer MEDICAID ==
[~2017-10-05] VITALS: Ht 172.7 cm; Wt 65.9 kg
[~2017-10-05 14:34] MED LIST changes: +BUPR-93 PO; +LITH300C3 PO; -OLAN10TA3 PO; +OLAN7.5T2 PO; +TRAZ-144 PO
[2017-10-05] MEDS ORDERED: PROPARACAINE/FLUORESCEIN SOD 0.5-0.25% 0.5 ML OPHTHALMIC SOLUTION OD ONE (15:00)
[2017-10-05 15:27] VITALS: BP 132/94
== END 2017-10-05 15:41 | disposition home or self-care (01) ==
LOC: EMS 14:35
DX: S00.11XA Contusion of right eyelid and periocular area, initial encounter (principal); F90.9 Attention-deficit hyperactivity disorder, unspecified type; H53.2 Diplopia; I10 Essential (primary) hypertension; X58.XXXA Exposure to other specified factors, initial encounter; Y93.89 Activity, other specified; Y92.89 Other specified places as the place of occurrence of the external cause; Y99.8 Other external cause status
CPT/HCPCS: 99283; Z7610